=== PATIENT | male | born 1940 | race Caucasian/White ===

== ENCOUNTER 2018-07-31 13:00 | Emergency (ER) | payer MEDICARE, OTHER ==
[~2018-07-31] VITALS: Ht 182.9 cm; Wt 99.8 kg
[2018-07-31 13:28] VITALS: BP 118/63
[2018-07-31 14:01] LABS: BASOPHILS % (AUTO) 1.7 % (0.0-2.0); EOSINOPHILS % (AUTO) 0.7 % (0.0-3.0); HEMATOCRIT 27.4 % (42.0-52.0); HEMOGLOBIN 8.5 G/DL (14.2-18.0); LYMPHOCYTES % (AUTO) 13.5 % (20.0-45.0); MEAN CORPUSCULAR VOLUME 101 FL (80-99); NEUTROPHILS % (AUTO) 74.2 % (45.0-75.0); PLATELET COUNT 340 K/UL (150-450); RED BLOOD COUNT 2.72 M/UL (4.70-6.10); RED CELL DISTRIBUTION WIDTH 18.7 % (11.6-14.8); WHITE BLOOD COUNT 8.7 K/UL (4.8-10.8)
[2018-07-31 14:10] VITALS: BP 103/60
--- NOTE | 2018-07-31 14:11 | Emergency Room Report ---
History of Present Illness General Chief Complaint: Dyspnea/Respdistress Source: Patient, Medical Record (Gamal Hardwick DO) Present Illness HPI Patient presents from nursing facility with reports of shortness of breath Patient reports that he is not sure exactly what happened but he had an acute episode of shortness of breath feel significantly improved at this time patient does have history of dialysis and is due for dialysis today Denies any fevers or chills reports patient had a mild cough Denies any vomiting or diarrhea Denies any neck pain or photophobia (Gamal Hardwick DO) Allergies: Coded Allergies: No Known Allergies (Unverified , 07/31/18) Patient History Past Medical History: see triage record Pertinent Family History: none Reviewed Nursing Documentation: PMH: Agreed; PSxH: Agreed (Gamal Hardwick DO) Nursing Documentation-PMH Hx Cardiac Problems: Yes - CHF, A-Fib Hx COPD: Yes - Acute resp. Failure Hx Gastrointestinal Problems: Yes - Gastrointerstinal hemorrhage Hx Dialysis: Yes - M-W-F (Gamal Hardwick DO) Review of Systems All Other Systems: negative except mentioned in HPI (Gamal Hardwick DO) Physical Exam Vital Signs Date Time Temp Pulse Resp B/P (MAP) Pulse Ox O2 Delivery O2 Flow Rate FiO2 07/31/18 12:44 97.9 82 16 108/65 100 Simple Mask 15.0 97.9 Sp02 EP Interpretation: reviewed, normal General Appearance: no apparent distress Head: normocephalic, atraumatic Eyes: bilateral eye PERRL, bilateral eye EOMI ENT: normal pharynx, no angioedema Neck: supple, thyroid normal Respiratory: no retraction, no accessory muscle use, crackles - bilaterally Cardiovascular #1: regular rate, rhythm Gastrointestinal: non tender, soft Musculoskeletal: other - Significant lymphedema chronic Neurologic: alert, oriented x3 Skin: other - significant lymphedema, erythema bilaterally Lymphatic: other - as above (Gamal Hardwick DO) Medical Decision Making Diagnostic Impression: Primary Impression: Dyspnea Additional Impression: Renal failure ER Course The patient was discussed with [facility] who agreed to accept the patient transfer. Patient was noted to have DO NOT RESUSCITATE status. The patient will likely require dialysis.The patient be transferred to telemetry floor. The patient currently stable for transfer. Labs Test 07/31/18 13:10 07/31/18 15:28 White Blood Count 8.7 K/UL (4.8-10.8) Red Blood Count 2.72 M/UL (4.70-6.10) Hemoglobin 8.5 G/DL (14.2-18.0) Hematocrit 27.4 % (42.0-52.0) Mean Corpuscular Volume 101 FL (80-99) Mean Corpuscular Hemoglobin 31.4 PG (27.0-31.0) Mean Corpuscular Hemoglobin Concent 31.2 G/DL (32.0-36.0) Red Cell Distribution Width 18.7 % (11.6-14.8) Platelet Count 340 K/UL (150-450) Mean Platelet Volume 5.5 FL (6.5-10.1) Neutrophils (%) (Auto) 74.2 % (45.0-75.0) Lymphocytes (%) (Auto) 13.5 % (20.0-45.0) Monocytes (%) (Auto) 10.0 % (1.0-10.0) Eosinophils (%) (Auto) 0.7 % (0.0-3.0) Basophils (%) (Auto) 1.7 % (0.0-2.0) Sodium Level 133 MMOL/L (136-145) Potassium Level 5.9 MMOL/L (3.5-5.1) Chloride Level 97 MMOL/L (98-107) Carbon Dioxide Level 23 MMOL/L (21-32) Anion Gap 13 mmol/L (5-15) Blood Urea Nitrogen 55 mg/dL (7-18) Creatinine 6.0 MG/DL (0.55-1.30) Estimat Glomerular Filtration Rate mL/min (>60) Glucose Level 141 MG/DL (74-106) Calcium Level 8.8 MG/DL (8.5-10.1) Total Bilirubin 1.0 MG/DL (0.2-1.0) Aspartate Amino Transf (AST/SGOT) 56 U/L (15-37) Alanine Aminotransferase (ALT/SGPT) 51 U/L (12-78) Alkaline Phosphatase 266 U/L (46-116) Total Creatine Kinase 99 U/L (26-308) Creatine Kinase MB 1.0 NG/ML (0.0-3.6) Creatine Kinase MB Relative Index 1.0 Troponin I 0.238 ng/mL (0.000-0.056) Pro-B-Type Natriuretic Peptide 45478 pg/mL (0-125) Total Protein 7.9 G/DL (6.4-8.2) Albumin 3.0 G/DL (3.4-5.0) Globulin 4.9 g/dL Albumin/Globulin Ratio 0.6 (1.0-2.7) Lipase 1739 U/L (73-393) Lactic Acid Level 2.70 mmol/L (0.66-2.22) (Jeff Perez MD) Last Vital Signs Date Time Temp Pulse Resp B/P (MAP) Pulse Ox O2 Delivery O2 Flow Rate FiO2 07/31/18 13:28 97.9 62 22 118/63 100 Non-Rebreather 15.0 97.9 (Gamal Hardwick DO) Status: unchanged (Jeff Perez MD) Disposition: XFER SHT-TRM HOSP Condition: Serious Referrals: NON PHYSICIAN (PCP) Gamal Hardwick DO Jul 31, 2018 14:11 eJff Perez MD Jul 31, 2018 17:40
[2018-07-31] MEDS ORDERED: ACETAMINOP160 MG/51 ORAL (14:24)
[2018-07-31] MEDS ORDERED: LACTULOSE20 GM/301 ORAL (14:24)
[2018-07-31] MEDS ORDERED: NEPHROVITE1 TAB ORAL (14:24)
[2018-07-31] MEDS ORDERED: ZOFRAN4 M3 ORAL (14:24)
[2018-07-31] MEDS ORDERED: MIDODRINE HCL10 MG ORAL (14:24)
[2018-07-31] MEDS ORDERED: LEVOTHYROXINE75 MCG ORAL (14:24)
[2018-07-31] MEDS ORDERED: COLACE100 MG ORAL (14:24)
[2018-07-31] MEDS ORDERED: SENNA8.6 M2 PO (14:24)
[2018-07-31] MEDS ORDERED: CALCIUM CARBON500 M1 PO (14:24)
[2018-07-31 14:28] LABS: ALANINE AMINOTRANSFERASE 51 U/L (12-78); ALBUMIN/GLOBULIN RATIO 0.6 (1.0-2.7); ALKALINE PHOSPHATASE 266 U/L (46-116); ANION GAP 13 mmol/L (5-15); ASPARTATE AMINO TRANSFERASE 56 U/L (15-37); BLOOD UREA NITROGEN 55 mg/dL (7-18); CALCIUM 8.8 MG/DL (8.5-10.1); CARBON DIOXIDE 23 MMOL/L (21-32); CHLORIDE 97 MMOL/L (98-107); CREATINE KINASE 99 U/L (26-308); POTASSIUM 5.9 MMOL/L (3.5-5.1); SODIUM 133 MMOL/L (136-145)
[2018-07-31 15:40] VITALS: BP 103/52
[2018-07-31 17:26] VITALS: BP 102/60
--- NOTE | 2018-07-31 17:30 | Diagnostic Imaging Report ---
Indication: Shortness of breath Technique: One view of the chest Comparison: none Findings: There is a large right pleural effusion. There is extensive interstitial and airspace disease throughout the right lung. Interstitial opacities are also seen throughout the left lung. The heart is enlarged. Impression: Cardiomegaly. Large pleural effusion Bilateral right greater than left interstitial disease and right lung airspace disease, infiltrates versus edema
[2018-07-31 17:36] VITALS: BP 102/60
--- NOTE | 2018-08-02 15:55 | Cardiology Report ---
APPROVED REPORT EKG Measurement Heart [id number] Sinus rhythm with 1st degree AV block Right axis deviation Septal infarct, age undetermined Abnormal ECG
== END 2018-07-31 17:57 | disposition short-term general hospital (02) ==
LOC: EDBD 13:00 → EMR 13:30
DX: R06.00 Dyspnea, unspecified (principal); N19 Unspecified kidney failure; I50.9 Heart failure, unspecified; I48.91 Unspecified atrial fibrillation
CPT/HCPCS: 36415; 71045; 80053; 82550; 82553; 83605; 83690; 83880; 84484; 85025; 86710; 87040; 93005; 99284